=== PATIENT | male | born 2000 | race Two or more races ===

== ENCOUNTER 2018-12-12 23:03 | Emergency (ER) | payer MEDICAID ==
[~2018-12-12] VITALS: Ht 172.7 cm; Wt 114.8 kg
--- NOTE | 2018-12-12 23:06 | NUR ---
BIB [facility] for SI and OD on 6-8 tablets of trazadone. Patient is able to verbalize complaints. Patient reported that he had 4 shots of tequila and some beer as well. Patient is alert and oriented x3. Patient states that "he ain't shit", and verbalizes that he does not want to live anymore. Respiratory even and unlabored, no cough no sob. Denies any n/v/d.
--- NOTE | 2018-12-12 23:06 | NUR ---
According to [facility] facilities maintenance supervisor, ANTONY Matias, she states that there are no available sitters at this time.
--- NOTE | 2018-12-12 23:06 | NUR ---
ERMD at bedside for MSE
--- NOTE | 2018-12-12 23:13 | NUR ---
Called [employer] for sitter, no sitter available at this time, adviced to utilize [employer] LINE DRIVER as sitter. Called Security to search patient for weapons and contraband. Security at bedside.
[2018-12-12] MEDS ORDERED: IV NORMAL SALINE 1000 ML BAG IV ONE (23:15)
--- NOTE | 2018-12-12 23:21 | NUR ---
Called Margaux Acosta RN PET, left voicemail.
[2018-12-12 23:30] LABS: BASOPHILS # (AUTO) 0.1 K/uL (0.0-8.0); BASOPHILS % (AUTO) 1.3 % (0.0-2.0); EOSINOPHILS # (AUTO) 0.2 K/uL (0.0-0.7); EOSINOPHILS % (AUTO) 2.2 % (0.0-7.0); HEMATOCRIT 40.9 % (36.7-47.1); HEMOGLOBIN 14.4 g/dL (12.5-16.3); LYMPHOCYTES # (AUTO) 2.6 K/uL (20.0-40.0); LYMPHOCYTES % (AUTO) 29.1 % (20.5-74.5); MEAN CORPUSCULAR HGB CONC 35 g/dL (32.5-36.3); MEAN CORPUSCULAR VOLUME 87.9 fL (73.0-96.2); MONOCYTES # (AUTO) 0.8 K/uL (2.0-10.0); MONOCYTES % (AUTO) 8.7 % (0-11); NEUTROPHILS # (AUTO) 5.1 K/uL (1.8-8.9); NEUTROPHILS % (AUTO) 58.7 % (31.5-64.5); PLATELET COUNT (AUTO) 191 K/uL (152-348); RED BLOOD CELL COUNT(AUTO) 4.66 MIL/uL (4.06-5.63); WHITE BLOOD COUNT (AUTO) 8.8 K/uL (3.6-10.2)
--- NOTE | 2018-12-12 23:30 | NUR ---
CAMILO Case at bedside for patient sitting 1:1
[2018-12-12 23:42] LABS: *BILIRUBIN,URIN NEGATIVE (NEGATIVE); *BLOOD, URINE NEGATIVE (NEGATIVE); *CLARITY,URINE CLEAR (CLEAR); *COLOR,URINE LIGHT YELLOW (YELLOW); *KETONES,URINE NEGATIVE (NEGATIVE); *UROBILINOGEN,URINE 0.2 E.U./dl (NORMAL); LEUKOCYTE ESTERASE ,URINE NEGATIVE (NEGATIVE); NITRITE, URINE NEGATIVE (NEGATIVE); PH,URINE 6.5 (5.0-8.0); UGLUCOSE NEGATIVE (NEGATIVE)
[2018-12-12 23:47] LABS: ALANINE AMINOTRANSFERASE 67 U/L (16-63); ALKALINE PHOSPHATASE 100 U/L (50-136); ASPARTATE AMINOTRANSFERASE 42 U/L (15-37); BILIRUBIN,DIRECT 0.3 mg/dL (0.0-0.2); CARBON DIOXIDE 25 mmol/L (21-32); CHLORIDE 106 mmol/L (98-107); CREATINE KINASE, TOTAL 486 U/L (39-308); GLUCOSE 94 mg/dL (74-106); POTASSIUM 3.1 mmol/L (3.5-5.1); TOTAL PROTEIN, SERUM 7.5 g/dL (6.4-8.2); UREA NITROGEN, BLOOD 7 mg/dL (7-18)
[2018-12-12 23:52] LABS: ACETAMINOPHEN < 2.0 ug/mL (10-30)
[2018-12-12 23:54] LABS: THYROID STIMULATING HORMONE 2.317 mIU/mL (0.358-3.740)
--- NOTE | 2018-12-12 23:57 | NUR ---
POISON CONTROL [place]) ON THE LINE CALLED FOR RA
[2018-12-12 23:59] LABS: ETHANOL 75 MG/DL (0-0)
[2018-12-13] LABS: *AMPHETAMINE, URINE NEGATIVE (NEGATIVE); *BARBITURATE, URINE NEGATIVE (NEGATIVE); *CANNABINOID, URINE POSITIVE (NEGATIVE); *COCCAINE, URINE NEGATIVE (NEGATIVE); *OPIATE, URINE NEGATIVE (NEGATIVE); *PHENCYCLIDINE SCREEN,URINE NEGATIVE (NEGATIVE)
--- NOTE | 2018-12-13 00:10 | NUR ---
LAB CALLED AND STATES BLOOD ALCOHOL 0.08
--- NOTE | 2018-12-13 00:22 | NUR ---
NAZARIO RN (CRISIS TEAM) CALLED BACK. WILL COME IN FOR PSYCHE EVAL PT NAD, ASLEEP +INTACT LEFT FOREARM SALINE LOCK TALKED WITH POISON CONTROL (ISAI) RECOMMENDS: RPT LIVER STUDIES AND EKG AFTER 4HRS UPON ADMISSION, CONTINUE TO PLACE IN MONITOR WATCH OUT FOR QTC PROLONGATION ERMD AWARE
--- NOTE | 2018-12-13 01:17 | NUR ---
PT ASLEEP BUT EASILY ROUSED. MONITORED ACCORDINGLY. PT NAD WITH 1ON1 SITTER AT BEDSIDE SIDERAILSX2 UP, BED AT LOWEST POSITION
[2018-12-13] MEDS ORDERED: POTASSIUM CHLORIDE 20 MEQ TAB.PRT.SR PO ONE (01:30)
[2018-12-13] MEDS ORDERED: POTASSIUM CHLORIDE 20 MEQ TAB.PRT.SR ONE (01:33)
--- NOTE | 2018-12-13 01:53 | NUR ---
DIMPLE DURAN RN (CRISIS TEAM) FOLOW UP CALL DONE. [phone] STATES ETA 1.5HR (APPROX)
--- NOTE | 2018-12-13 02:26 | NUR ---
Margaux RN crisis team here on site to evaluate patient.
--- NOTE | 2018-12-13 03:37 | NUR ---
LAB AT BEDSIDE
[2018-12-13 03:57] LABS: BILIRUBIN,DIRECT 0.2 mg/dL (0.0-0.2); BILIRUBIN,TOTAL 0.7 mg/dL (0.2-1.0); MAGNESIUM 1.8 mg/dL (1.8-2.4); TOTAL PROTEIN, SERUM 6.8 g/dL (6.4-8.2)
--- NOTE | 2018-12-13 04:00 | NUR ---
ERMD AT BEDSIDE FOR UPDATE: PT VERBALIZED: "WHEN I GET HOME, I FEEL HOPELESS." PT DENIES PLAN, STATES HE IS A BURDEN TO EVERYBODY 1ON1 SITTER AT BEDSIDE
--- NOTE | 2018-12-13 05:56 | NUR ---
PT NAD, PT IS SLEEPING BUT EASILY ROUSABLE +SNORING SIDERAILS UPX2 , BED AT LOWEST POSITION POISON CONTROL (ISAI) CALLED FOR FOLLOW UP AND ASKED FOR UPDATES: EKG ELECTROLYTES STATES GOAL OF CALCIUM TO BE ABOVE 9MG/DL POTASSIUM ABOVE 4MG/DL MAGNESIUM ABOVE 2MG/DL THEN A REPEAT OF EKG 3HRS AFTER MONITOR ACCORDINGLY FOR ANY PROLONGED QT/QTC FROM EKG (2ND: 462/472MS) SEIZURE PREC AT ALL TIMES (NO EPISODES SO FAR)
--- NOTE | 2018-12-13 07:00 | NUR ---
ON THE PHONE WITH HI SUAREZ WARM HAND OFF GIVEN DIRECTOR OF MEDICAL STAFF SERVICES ABLE TO TALK WITH SUSAN DO LCSW ETA WITHIN THE NEXT HOUR FOR PSYCHE EVAL PT NAD, ASLEEP BUT EASILY ROUSABLE MONITORED ACCORDINGLY ON SEIZURE PREC BED AT LOWEST POSITION SIDERAILSX2 UP LAB AT BEDSIDE FOR F/U BLOOD DRAW
[2018-12-13 07:05] LABS: CARBON DIOXIDE 24 mmol/L (21-32); CHLORIDE 107 mmol/L (98-107); CREATININE 0.7 mg/dL (0.6-1.3); GLUCOSE 87 mg/dL (74-106); POTASSIUM 3.4 mmol/L (3.5-5.1); UREA NITROGEN, BLOOD 6 mg/dL (7-18)
--- NOTE | 2018-12-13 07:10 | NUR ---
Received report from car shifter. Pt is sleeping with NAD noted.
--- NOTE | 2018-12-13 09:03 | NUR ---
Pt is awake,alert and oriented x4, denies any suicidal ideation. Pt states " I feel alot better, I was not in the right state of mind last night ".
--- NOTE | 2018-12-13 09:04 | NUR ---
Pt is eating breakfast.
--- NOTE | 2018-12-13 09:45 | NUR ---
Rodney Marie here for psych re-eval.
--- NOTE | 2018-12-13 10:25 | NUR ---
IV removed. Catheter intact and site benign. Pressure and 4x4 gauze applied to site. No bleeding noted.
--- NOTE | 2018-12-13 10:30 | NUR ---
Patient discharged to home in stable conditon with his father. Written and verbal after care instructions given. Patient verbalizes understanding of instructions. Stressed follow up.
[2018-12-13 10:32] VITALS: BP 117/64
== END 2018-12-13 10:33 | disposition home or self-care (01) ==
LOC: ER 23:06
DX: T43.212A Poisoning by selective serotonin and norepinephrine reuptake inhibitors, intentional self-harm, initial encounter (principal); F10.10 Alcohol abuse, uncomplicated; R74.0 Nonspecific elevation of levels of transaminase and lactic acid dehydrogenase [LDH]; E87.6 Hypokalemia; Z88.0 Allergy status to penicillin; Y92.89 Other specified places as the place of occurrence of the external cause; Y90.8 Blood alcohol level of 240 mg/100 ml or more
CPT/HCPCS: 36415 ×2; 80048 ×2; 80076 ×2; 80307; 81001; 82550; 83735 ×2; 84443; 85025; 93005 ×3; 99284; G0480 ×2; G0481; A4663; J7030